=== PATIENT | female | born 2000 | race Caucasian/White ===

== ENCOUNTER 2024-02-21 17:15 | Emergency (ER) | payer BC ==
[~2024-02-21] VITALS: Ht 167.6 cm; Wt 113.4 kg
[2024-02-21 17:24] VITALS: BP 182/98
[2024-02-21] MEDS ORDERED: AMOCLA875 PO (17:36)
[2024-02-21] MEDS ORDERED: RX Prepack 6 Tabs Oxycodone 5mg UD ONE (17:40)
[2024-02-22] MEDS ORDERED: ONDA4ODT MM (20:27)
== END 2024-02-21 17:41 | disposition home or self-care (01) ==
LOC: ER 17:15
DX: J32.9 Chronic sinusitis, unspecified (principal); L08.9 Local infection of the skin and subcutaneous tissue, unspecified
CPT/HCPCS: 99282; A9270

== ENCOUNTER 2024-02-22 16:04 | Emergency (ER) | payer BC ==
[~2024-02-22] VITALS: Ht 170.2 cm; Wt 113.4 kg
[~2024-02-22 16:04] MED LIST: AMOCLA875 PO
[2024-02-22 16:25] VITALS: BP 139/109
[2024-02-22 17:56] LABS: BASOPHILS ABSOLUTE AUTO 0.05 K/mm3 (0.00-0.23); BASOPHILS PERCENT AUTO 0 % (0-2); EOSINOPHILS ABSOLUTE AUTO 0.15 K/mm3 (0.00-0.68); EOSINOPHILS PERCENT AUTO 1 % (0-6); Hematocrit 40.8 % (33.0-51.0); Hemoglobin 13.3 g/dL (11.5-16.0); IMMATURE GRAN ABSOLUTE AUTO 0.06 K/mm3 (0.00-0.10); IMMATURE GRAN PERCENT AUTO 0 % (0-1); LYMPHOCYTES ABSOLUTE AUTO 2.22 K/mm3 (0.84-5.20); LYMPHOCYTES PERCENT AUTO 13 % (21-46); MONOCYTES ABSOLUTE AUTO 0.82 K/mm3 (0.16-1.47); MONOCYTES PERCENT AUTO 5 % (4-13); Mean Corpuscular HGB 28.3 pg (26.0-34.0); Mean Corpuscular HGB Conc 32.6 g/dL (31.5-36.5); Mean Corpuscular Volume 87 fL (80-100); Mean Platelet Volume 9.7 fL (9.1-12.4); NEUTROPHILS ABSOLUTE AUTO 13.54 K/mm3 (1.96-9.15); NEUTROPHILS PERCENT AUTO 80 % (41-73); Platelet Count 363 K/mm3 (150-400); RDW Coefficient Variation 12.9 % (11.7-14.2); RDW Standard Deviation 40.9 fL (35.1-46.3); White Blood Cell Count 16.84 K/mm3 (4.00-11.30)
[2024-02-22 18:22] LABS: Alanine Aminotransfer (ALT/SGP 15 U/L (12-78); Albumin, Blood 3.4 g/dL (3.4-5.0); Albumin/Globulin Ratio 0.8 (0.8-1.8); Alk Phos 95 U/L (50-136); Anion Gap 11 mmol/L (3-11); Aspartate Aminotrans (AST/SGOT 11 U/L (12-37); Beta HCG, Quantitative, Serum <1 mIU/mL (0-3); Bilirubin, Total 0.3 mg/dL (0.1-1.0); Blood Urea Nitrogen 5 mg/dL (8-24); Bun/Creatinine Ratio 6.9 (12.0-20.0); CO2, Blood 25 mmol/L (21-32); Chloride, Blood 104 mmol/L (98-108); Creatinine, Blood 0.73 mg/dL (0.40-1.00); Globulin, Blood 4.5 g/dL (2.2-4.0); Glomerular Filtration Rate 117 (60-); Glucose, Blood 85 mg/dL (70-99); Potassium, Blood 3.9 mmol/L (3.5-5.5); Sodium, Blood 136 mmol/L (136-145); Total Protein, Blood 7.9 g/dL (6.4-8.2)
[2024-02-22] MEDS ORDERED: RX Prepack 2 Tabs Ondansetron ODT 4MG UD ONE (20:25)
[2024-02-22] MEDS ORDERED: Ketorolac Tromethamine 15mg Vial IV ONE (20:25)
[2024-02-22] MEDS ORDERED: NS 1,000 ML IV SCH (20:25)
[2024-02-22] MEDS ORDERED: Ondansetron HCl 2 MG / ML 2ML Vial IV ONE (20:25)
[2024-02-22] MEDS ORDERED: ONDA4ODT MM (20:27)
== END 2024-02-22 21:42 | disposition home or self-care (01) ==
LOC: ER 16:04
PROVIDERS: Emergency Medicine
DX: J32.0 Chronic maxillary sinusitis (principal); R11.2 Nausea with vomiting, unspecified
CPT/HCPCS: 70450; 80053; 83690; 84702; 85025; 96361; 96374; 96375; 99284-25; A9270; J1885; J2405; J7030

== ENCOUNTER → 2024-07-18 | Outpatient (CLI) | payer BC ==
[~2024-07-18] MED LIST changes: +ONDA4ODT MM
== END ==
LOC: LAB SHORT 10:00 → LAB 10:00
DX: Z34.91 Encounter for supervision of normal pregnancy, unspecified, first trimester (principal)
CPT/HCPCS: 84702

== ENCOUNTER → 2024-12-28 | Outpatient (CLI) | payer BC ==
[2024-12-28 09:01] LABS: Source, Urine Clean Catch
[2024-12-28 10:55] LABS: Bilirubin, Urine Neg (Neg); Color, Urine Yellow (P-Yellow); Glucose Qualitative, Urine Neg (Neg); Ketones, Urine Neg (Neg); Leukocyte Esterase, Urine Neg (Neg); Protein, Urine 1+ (Neg); Specific Gravity, Urine 1.020 (1.003-1.022); Urobilinogen, Urine NORM (Normal)
[2024-12-28 11:06] LABS: Red Blood Cells, Urine 0-2 /hpf (0-2); White Blood Cells, Urine 0-2 /hpf (0-5)
[2024-12-28 12:21] LABS: Bacterial Vaginosis PCR Negative (NEGATIVE); Candida Group, PCR NOT DETECTED (NOT DETECT); Candida glabrata-krusei, PCR NOT DETECTED (NOT DETECT)
== END | disposition home or self-care (01) ==
LOC: LAB 08:57 → LAB SHORT 08:57
PROVIDERS: Advanced Practice Midwife
DX: N94.10 Unspecified dyspareunia (principal); R35.0 Frequency of micturition
CPT/HCPCS: 81001; 81515

== ENCOUNTER 2025-01-30 00:32 | Emergency (ER) | payer BC ==
[~2025-01-30] VITALS: Ht 167.6 cm; Wt 127.0 kg
[2025-01-30 02:43] VITALS: BP 125/88
== END 2025-01-30 02:44 | disposition home or self-care (01) ==
LOC: ER 00:32
DX: O99.891 Other specified diseases and conditions complicating pregnancy (principal); M79.89 Other specified soft tissue disorders; Z3A.32 32 weeks gestation of pregnancy; Z79.2 Long term (current) use of antibiotics; Z59.89 Other problems related to housing and economic circumstances
CPT/HCPCS: 93971

== ENCOUNTER → 2025-03-01 | Outpatient (CLI) | payer BC | LOC: LAB SHORT 15:33 → LAB 15:33 | DX: O09.93 Supervision of high risk pregnancy, unspecified, third trimester (principal) | CPT/HCPCS: 87081; 87150 ==

== ENCOUNTER 2025-03-27 18:52 | Inpatient (IN) | payer BC ==
[~2025-03-27] VITALS: Ht 167.6 cm; Wt 136.3 kg
[2025-03-27] MEDS ORDERED: FentaNYL Citrate 50 MCG/ML 2 ML Injection IV PRN (19:05)
[2025-03-27] MEDS ORDERED: Tranexamic Acid 100 ML IV SCH (19:10)
[2025-03-27] MEDS ORDERED: OXYTOCIN/RINGER'S LACTATE 500 ML IV PRN (19:10)
[2025-03-27] MEDS ORDERED: FentaNYL 2mcg/ml-Bup 0.1% Epd 250 ML EPI PRN (19:10)
[2025-03-27] MEDS ORDERED: Methylergonovine Maleate 0.2MG / ML 1ML Amp IM PRN (19:10)
[2025-03-27] MEDS ORDERED: Oxytocin 10 Unit / ML Vial IM PRN (19:10)
[2025-03-27] MEDS ORDERED: ePHEDrine Sulfate 50 MG/ML 1ML Injection XX PRN (19:10)
[2025-03-27] MEDS ORDERED: Carboprost Tromethamine 250 MCG/ML 1ML Amp IM PRN (19:10)
[2025-03-27 19:15] VITALS: BP 125/74
[2025-03-27] MEDS ORDERED: Ondansetron HCl 2 MG / ML 2ML Vial IV PRN (19:15)
[2025-03-27] MEDS ORDERED: PRENATAL TABLE1 EAC2 PO (19:58)
[2025-03-27] MEDS ORDERED: IRON-VITAMIN C1 EAC1 PO (20:00)
[2025-03-27] MEDS ORDERED: ZYRTEC10 M1 PO (20:02)
[2025-03-27] MEDS ORDERED: SERT25 PO (20:03)
[2025-03-27 20:07] VITALS: BP 131/83
[2025-03-27 20:14] LABS: BASOPHILS ABSOLUTE AUTO 0.03 K/mm3 (0.00-0.23); BASOPHILS PERCENT AUTO 0 % (0-2); EOSINOPHILS ABSOLUTE AUTO 0.18 K/mm3 (0.00-0.68); EOSINOPHILS PERCENT AUTO 1 % (0-6); Hematocrit 34.3 % (33.0-51.0); Hemoglobin 11.1 g/dL (11.5-16.0); IMMATURE GRAN ABSOLUTE AUTO 0.07 K/mm3 (0.00-0.10); IMMATURE GRAN PERCENT AUTO 1 % (0-1); LYMPHOCYTES ABSOLUTE AUTO 2.14 K/mm3 (0.84-5.20); LYMPHOCYTES PERCENT AUTO 16 % (21-46); MONOCYTES ABSOLUTE AUTO 0.76 K/mm3 (0.16-1.47); MONOCYTES PERCENT AUTO 6 % (4-13); Mean Corpuscular HGB Conc 32.4 g/dL (31.5-36.5); Mean Corpuscular Volume 88 fL (80-100); NEUTROPHILS ABSOLUTE AUTO 10.58 K/mm3 (1.96-9.15); NEUTROPHILS PERCENT AUTO 77 % (41-73); NRBC ABSOLUTE 0.00 K/mm3 (0.00-0.02); NRBC Auto 0.0 /100 WBC (0.0-0.2); Platelet Count 201 K/mm3 (150-400); RDW Coefficient Variation 14.1 % (11.7-14.2); RDW Standard Deviation 45.0 fL (35.1-46.3)
[2025-03-27 23:12] VITALS: BP 115/70
[2025-03-28] VITALS (62 sets, daily range): BP systolic 80–154; BP diastolic 45–97
[2025-03-28] MEDS ORDERED: FentaNYL Citrate 50 MCG/ML 2 ML Injection ONE (18:26)
[2025-03-29] VITALS (13 sets, daily range): BP systolic 103–149; BP diastolic 57–86
[2025-03-29] MEDS ORDERED: OXYTOCIN/RINGER'S LACTATE 500 ML IV SCH (06:50)
[2025-03-29] MEDS ORDERED: Methylergonovine Maleate 0.2MG / ML 1ML Amp IM PRN (06:50)
[2025-03-29] MEDS ORDERED: Ketorolac Tromethamine 30mg Vial IV PRN (06:50)
[2025-03-29] MEDS ORDERED: FLU VACC TS2025-26(6MOS UP)/PF 45 MCG/0.5 ML SYRINGE IM SCH (06:55)
[2025-03-29] MEDS ORDERED: Witch Hazel/Glycerin PADS TOP PRN (06:55)
[2025-03-29] MEDS ORDERED: Benzocaine Topical Anesthetic Spray 60GM TOP PRN (06:55)
[2025-03-29] MEDS ORDERED: Prenatal Vit/FE Fumarate/FA 1 Tab PO SCH (09:00)
[2025-03-30 00:22] VITALS: BP 139/64
[2025-03-30 03:27] VITALS: BP 132/74
[2025-03-30 06:29] LABS: Hematocrit 33.3 % (33.0-51.0); Hemoglobin 10.7 g/dL (11.5-16.0); Mean Corpuscular HGB Conc 32.1 g/dL (31.5-36.5); Mean Corpuscular Volume 89 fL (80-100); NRBC ABSOLUTE 0.00 K/mm3 (0.00-0.02); NRBC Auto 0.0 /100 WBC (0.0-0.2); Platelet Count 215 K/mm3 (150-400); RDW Coefficient Variation 14.5 % (11.7-14.2); RDW Standard Deviation 46.5 fL (35.1-46.3)
[2025-03-30 07:40] VITALS: BP 129/81
[2025-03-30] MEDS ORDERED: DOCU100 PO (11:29)
[2025-03-30] MEDS ORDERED: ACET325 PO (11:29)
[2025-03-30] MEDS ORDERED: IBUP800 (11:31)
[2025-03-30 12:24] VITALS: BP 121/78
--- NOTE | 2025-03-30 13:23 | NUR ---
No acute changes t/o shift. ID bands matched w/nb and verification form. Printed instructions reviewed/verbal teaching provided. Questions answered, pt and deny additional questions/concerns. Pt d/c'd home ambulatory to care of .
== END 2025-03-30 12:50 | disposition home or self-care (01) | DRG 807 ==
LOC: OBS 18:52 → BC 18:52 → OBS 19:02 → BC 19:03
PROVIDERS: ADMIT Advanced Practice Midwife
PROC: 10E0XZZ Delivery of Products of Conception, External Approach (ICD-10-PCS; principal; 2025-03-29)
PROC: 0HQ9XZZ Repair Perineum Skin, External Approach (ICD-10-PCS; 2025-03-29)
DX: O48.0 Post-term pregnancy (principal); Z37.0 Single live birth; Z3A.40 40 weeks gestation of pregnancy; O99.214 Obesity complicating childbirth; O99.344 Other mental disorders complicating childbirth; F41.8 Other specified anxiety disorders; O99.52 Diseases of the respiratory system complicating childbirth; J45.909 Unspecified asthma, uncomplicated
CPT/HCPCS: 36415; 51702; 76815; 85025; 85027; 86850; 86900; 86901; 86923; A9270; J1885; J2590; J3010; J7120